=== PATIENT | male | born 1990 | race Caucasian/White ===

== ENCOUNTER 2021-12-20 11:07 | Emergency (ER) | payer BC, SELFPAY ==
--- NOTE | 2021-12-20 11:17 | ED.GENADULT ---
HPI - General Adult General Chief complaint: Upper Respiratory Infection Stated complaint: Shortness of Breath,Headache,Body Aches Time Seen by Provider: 12/20/21 11:20 Source: patient, RN notes reviewed and old records reviewed Mode of arrival: ambulatory Limitations: no limitations History of Present Illness HPI narrative: 31-year-old male who presents to [facility] with complaints fever, shortness of breath,headache, and body aches for the past 3 days. Patient reports daughter was diagnosed with strep throat last week. Patient reports he has been taking ibuprofen for his complaints and fever. Patient has not had COVID vaccinations or flu shot. He states he has had a fever highest 101.3F at home. MD complaint: Fever, body aches, shortness of breath, and headache Onset (ago): day(s) (3) Location: head Severity scale (1-10): 5 Associated symptoms: fever/chills, headaches, shortness of breath and other (body aches) Treatments prior to arrival: NSAID Related Data Allergies Allergy/AdvReac Type Severity Reaction Status Date / Time amoxicillin [From Augmentin] AdvReac Mild Hives Verified 12/20/21 11:25 clavulanic acid AdvReac Mild Hives Verified 12/20/21 11:25 [From Augmentin] Review of Systems Review of Systems: CONSTITUTIONAL: Positive for fever, chills, or sweats. EYES: Denies visual changes, redness, or discharge. ENT: Denies rhinorrhea, congestion, sore throat, or otalgia. CARDIOVASCULAR: Denies chest pain, palpitations, or edema. RESPIRATORY: Denies cough positive shortness of breath GASTROINTESTINAL: Denies abdominal pain, nausea, vomiting, or diarrhea. GENITOURINARY: Denies dysuria or hematuria. SKIN: Denies rash or itching. MUSCULOSKELETAL: Denies back pain, joint pain, positive body aches NEUROLOGIC: positive for headache,no numbness, or weakness. PSYCHIATRIC: Denies anxiety or depression. [facility] Past Medical History Medical History (Updated 12/20/21 @ 12:19 by Kim Iverson NP) Bronchitis Ear infection Open left ankle fracture pinning required Surgical History Surgical History (Updated 12/20/21 @ 12:17 by Kim Iverson NP) History of placement of ear tubes Social History Social History (Updated 12/20/21 @ 12:16 by ISABEL Abrams Smoking status: Current every day smoker Tobacco type: e-cigarettes/vaping Alcohol intake: never Substance use: current Substance use type: marijuana Living arrangements: with family Gender identity (if verbalized by the patient): Male Comments At time of signature, agree with nursing past medical, surgical, social and family history. There is no relevant family history pertinent to the presenting complaint Exam Narrative: GENERAL: Ill-appearing, well-nourished, and in no acute distress. HEAD: Normocephalic, atraumatic. EYES: PERRLA and EOMI. ENT: Nares clear, no rhinorrhea or epistaxis. Mucous membranes moist.TM's normal with some scar tissue noted reports ear infections and tubes as child, throat red with no lesions positive for enlarged red tonsils. NECK: Supple.lymphadenopathy CHEST: Clear to auscultation. No respiratory distress.no tachypnea or any respiratory difficulty noted, SAO2 99% on room air HEART: Regular rate and rhythm. No murmur heard. Normal peripheral pulses. ABDOMEN: Soft, nontender, nondistended, normal active bowel sounds. EXTREMITIES: Normal range of motion. No edema. SKIN: Warm, dry, no rash. NEURO: No focal deficits. Alert and oriented x3. Course Course Level of Care: Express Care Visit Medical Decision Making Differential Diagnosis Differential Diagnosis: strep pharyngitis, COVID. influenza, URI, viral syndrome Medical Records Medical records reviewed: Yes I reviewed the external patient's medical records. Lab Data Lab results reviewed: Yes I reviewed the patient's lab results. Lab results narrative: strep positive, Influenza A negative, Influenza B negative, COVID antigen negative Critical Care T
[2021-12-20 11:18] VITALS: BP 134/76; PULSE 89; RESP 18; TEMP 38.4; O2SAT 99
== END 2021-12-20 11:51 | disposition home or self-care (01) ==
PROVIDERS: Emergency Provider Registered Nurse
DX: J02.0 Streptococcal pharyngitis (principal); F17.290 Nicotine dependence, other tobacco product, uncomplicated; Z28.310 Unvaccinated for COVID-19; Z20.822 Contact with and (suspected) exposure to COVID-19
CPT/HCPCS: 87426; 87804; 87880; 99213; C9803; G0463